=== PATIENT | male | born 2005 | race Caucasian/White ===

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

== ENCOUNTER 2023-09-07 11:41 | Emergency (ER) | payer MEDICAID, OTHER ==
[2023-09-07 12:09] VITALS: BP 124/82; PULSE 91
[2023-09-07] MEDS ORDERED: Bacitracin Oint 1 GM U/D Packet TOP ONE (12:33)
[2023-09-07] MEDS: Hydrocortisone/Neomycin/Polymyxin B Otic Susp 10 ML Bottle EARRT ONE (12:42)
[2023-09-07] MEDS: Diphtheria,Pertussis(Acell),Tetanus Vaccine 0.5 ML Syringe IM ONE (12:42)
== END 2023-09-07 12:45 | disposition home or self-care (01) ==
LOC: DL.ED 11:41
DX: H91.91 Unspecified hearing loss, right ear (principal); H74.8X1 Other specified disorders of right middle ear and mastoid; Z23 Encounter for immunization; W39.XXXA Discharge of firework, initial encounter
CPT/HCPCS: 90471; 90715; 99283; A9270